=== PATIENT | female | born 1950 | race African-American/Black ===

== ENCOUNTER 2021-06-23 13:45 | Inpatient (IN) ==
[2021-07-19] MEDS ORDERED: Lactated Ringers 1000 ml BAG 1,000 ML IV SCH (06:00)
[2021-07-19] MEDS ORDERED: NS 0.45% 1000 ml BAG 1,000 ML IV SCH (06:00)
[2021-07-19] MEDS ORDERED: Buffered Lidocaine 1% SYRIN 1 ml INTRADERM ONE ×4 (06:00→11:36)
[2021-07-19] MEDS ORDERED: ceFAZolin 2 GM in NS PREMIX 2 GM/100 ML BAG IVPB ONE (10:14)
[2021-07-19] MEDS ORDERED: Bupivacaine 0.5% 50 ML MDV VIAL ONE (10:35)
[2021-07-19] MEDS ORDERED: hydrALAZINE 20 mg/ml 1 ML Vial IV IV SLOW PU ONE (11:44)
[2021-07-19] MEDS ORDERED: hydrALAZINE 20 mg/ml 1 ML Vial IV ONE (11:47)
[2021-07-19] MEDS ORDERED: Metoprolol Tartrate 5 mg VIAL 5 ml VIAL (1 mg/ml) ONE (12:09)
[2021-07-19] MEDS: Labetalol IV 5 MG/ML 20 ml VIAL IV PUSH ONE ×2 (12:12→15:50)
[2021-07-19 12:13] LABS: Glucose 379 mg/dL (70-100)
[2021-07-19] MEDS ORDERED: Lidocaine 2% PF 5 ML VIAL ONE (13:27)
[2021-07-19] MEDS ORDERED: Propofol 10 MG/ML 20 ML BTL ONE (13:27)
[2021-07-19] MEDS ORDERED: Midazolam 2 mg/2 ml VIAL 1 mg/ml 2 ml VIAL (2 mg) ONE (13:28)
[2021-07-19] MEDS ORDERED: Phenylephrine IV 10 MG/ML 1 ml VIAL ONE (14:01)
[2021-07-19] MEDS ORDERED: diPHENhydraMINE 25 mg TAB PO PRN (14:49)
[2021-07-19] MEDS ORDERED: Ondansetron 4 mg VIAL 2 MG/ML 2 ml VIAL IV PRN (14:49)
[2021-07-19] MEDS ORDERED: diPHENhydraMINE IV 50 MG/ML 1 ml VIAL (BENADRYL) IV PRN (14:49)
[2021-07-19] MEDS ORDERED: Lactulose 30 ml UDC PO PRN (14:49)
[2021-07-19] MEDS ORDERED: Ondansetron ODT 4 mg TAB 4 MG TAB PO PRN (14:49)
[2021-07-19] MEDS ORDERED: Morphine 2 MG/ML SYRINGE IV PRN (14:49)
[2021-07-19] MEDS ORDERED: Fluticasone NASAL SPRAY 50MCG 16 gm SPRAY BTL INTRANASAL PRN (15:00)
[2021-07-19] MEDS ORDERED: Labetalol IV 5 MG/ML 20 ml VIAL ONE (15:50)
[2021-07-19] MEDS ORDERED: Dextrose 50% Syringe 50 ml 25 GM/50 ML SYRINGE IV PUSH PRN (16:40)
[2021-07-19] MEDS: Insulin ISOPH/REG 70/30 SUBCUT SCH (18:26)
[2021-07-19] MEDS: Heparin 5000 UNITS/ML 1 mL VIAL SUBCUT SCH (20:31)
[2021-07-19] MEDS: Calcium (OSCAL) 500 mg TAB PO SCH (20:31)
[2021-07-19] MEDS: Morphine 2 MG/ML SYRINGE IV PRN ×2 (21:34→23:53)
[2021-07-20] MEDS ORDERED: Morphine 2 MG/ML SYRINGE IV ONE (01:13)
[2021-07-20] MEDS: Morphine 2 MG/ML SYRINGE IV PRN ×3 (02:22→10:37)
[2021-07-20] MEDS ORDERED: Vancomycin per Pharmacy 1 EA NOTE FOLLOW UP PRN (05:40)
[2021-07-20] MEDS: Vitamin THERAPEUTIC TAB PO SCH (07:55)
[2021-07-20] MEDS: Isosorbide Mononit ER 30mg TAB PO SCH (07:55)
[2021-07-20] MEDS: Calcium (OSCAL) 500 mg TAB PO SCH ×2 (07:56→21:27)
[2021-07-20] MEDS: Heparin 5000 UNITS/ML 1 mL VIAL SUBCUT SCH ×2 (07:57→21:21)
[2021-07-20 08:00] LABS: Hematocrit 29 % (35-47); Hemoglobin 9.7 g/dL (12.0-16.0); Mean Platelet Volume 8.5 fL (7.4-10.4); Platelet Count 308 10^3/uL (150-450)
[2021-07-20 08:56] LABS: Calcium 9.1 mg/dL (8.6-10.3); eGFR CKD-EPI 4.6 (>60)
[2021-07-20 09:05] LABS: Potassium 6.2 mmol/L (3.5-5.0)
[2021-07-20] MEDS ORDERED: HYDROmorphone 0.5 MG/0.5 ML SYRINGE IV SLOW PU ONE ×2 (09:29→10:18)
[2021-07-20] MEDS ORDERED: Cefepime 1 GM in Dextrose 1 GM/50 ML BAG IV ONE (12:00)
[2021-07-20] MEDS ORDERED: Vancomycin 1,500 MG in NS 0.9% 250 ml 250 ML IVPB SCH (12:00)
[2021-07-20 12:46] LABS: Hepatitis B Surface Antigen Nonreactive (Nonreactive)
[2021-07-20 12:51] LABS: Hepatitis B Core IgM Nonreactive (Nonreactive)
[2021-07-20 13:04] LABS: Hepatitis B Surface Ab Not Immune (Immune)
[2021-07-20] MEDS: Insulin ISOPH/REG 70/30 SUBCUT SCH (17:40)
[2021-07-21 05:47] LABS: Hematocrit 30 % (35-47); Hemoglobin 9.7 g/dL (12.0-16.0); Platelet Count 280 10^3/uL (150-450)
[2021-07-21] MEDS ORDERED: Vancomycin Random Level NOTE FOLLOW UP ONE (06:00)
[2021-07-21 06:10] LABS: Blood Urea Nitrogen 28 mg/dL (6-24); CO2 Carbon Dioxide 26 mmol/L (22-32); Calcium 9.6 mg/dL (8.6-10.3); Chloride 95 mmol/L (101-111); Glucose 85 mg/dL (70-100); Sodium 133 mmol/L (135-145)
[2021-07-21 06:25] LABS: Anion Gap 12 mmol/L (2-11); Potassium 5.4 mmol/L (3.5-5.0)
[2021-07-21 06:32] LABS: Vancomycin Random < 2.0 mcg/mL
[2021-07-21] MEDS: Calcium (OSCAL) 500 mg TAB PO SCH ×2 (08:52→22:56)
[2021-07-21] MEDS: Isosorbide Mononit ER 30mg TAB PO SCH (08:52)
[2021-07-21] MEDS: Vitamin THERAPEUTIC TAB PO SCH (08:52)
[2021-07-21] MEDS: Heparin 5000 UNITS/ML 1 mL VIAL SUBCUT SCH ×2 (08:54→21:38)
[2021-07-21] MEDS: Morphine 2 MG/ML SYRINGE IV PRN (10:20)
[2021-07-21] MEDS ORDERED: Vancomycin 500 MG in NS 0.9% 250 ML IVPB ONE (14:00)
[2021-07-21] MEDS ORDERED: Vancomycin 750 MG in NS 0.9% 250 ML IVPB ONE (14:00)
[2021-07-21] MEDS: Insulin ISOPH/REG 70/30 SUBCUT SCH (17:45)
[2021-07-22 05:34] LABS: Hematocrit 32 % (35-47); Hemoglobin 10.2 g/dL (12.0-16.0); Mean Platelet Volume 8.7 fL (7.4-10.4); Platelet Count 304 10^3/uL (150-450)
[2021-07-22] MEDS ORDERED: Vancomycin Random Level NOTE FOLLOW UP ONE (06:00)
[2021-07-22] MEDS: Calcium (OSCAL) 500 mg TAB PO SCH ×2 (08:29→23:39)
[2021-07-22] MEDS: Vitamin THERAPEUTIC TAB PO SCH (08:29)
[2021-07-22] MEDS: Isosorbide Mononit ER 30mg TAB PO SCH (08:30)
[2021-07-22] MEDS: Heparin 5000 UNITS/ML 1 mL VIAL SUBCUT SCH ×2 (08:36→23:38)
[2021-07-22] MEDS: Heparin 1,000 UNIT/ML 10 ml (10,000 UNITS) CATHLAB/DIALYSIS DIALYSIS ONE ×3 (10:56→12:40)
[2021-07-22] MEDS ORDERED: Morphine 2 MG/ML SYRINGE IV ONE (11:24)
[2021-07-22] MEDS ORDERED: Vancomycin 750 MG in NS 0.9% 250 ML IVPB ONE (14:00)
[2021-07-22] MEDS: Insulin ISOPH/REG 70/30 SUBCUT SCH (17:50)
[2021-07-23 03:07] LABS: ABS Basophils 0.1 10^3/ul (0-0.2); ABS Lymphocytes 1.3 10^3/ul (1.0-4.8); ABS Monocytes 1.7 10^3/ul (0-0.8); ABS Neutrophils 8.7 10^3/ul (1.5-7.7); Eosinophil % 0.3 %; Hematocrit 31 % (35-47); Hemoglobin 9.9 g/dL (12.0-16.0); Lymphocyte % 11.4 %; Mean Corpuscular HGB Conc 32 g/dL (31-36); Mean Corpuscular Hemoglobin 30 pg (27-31); Mean Corpuscular Volume 92 fL (80-97); Mean Platelet Volume 8.9 fL (7.4-10.4); Platelet Count 383 10^3/uL (150-450); Red Blood Count 3.34 10^6 /uL (3.70-4.87); Red Cell Distribution Width 17 % (10-15); White Blood Count 11.9 10^3/uL (3.5-10.8)
[2021-07-23 03:50] LABS: eGFR CKD-EPI 5.5 (>60)
[2021-07-23 03:56] LABS: Potassium 6.1 mmol/L (3.5-5.0)
[2021-07-23] MEDS ORDERED: SODIUM ZIRCONIUM CYCLOSILICATE 5 GM PACKET PO ONE ×2 (04:12→10:30)
[2021-07-23 05:45] LABS: Hematocrit 33 % (35-47); Hemoglobin 10.8 g/dL (12.0-16.0); Mean Platelet Volume 8.7 fL (7.4-10.4); Platelet Count 392 10^3/uL (150-450)
[2021-07-23] MEDS: Isosorbide Mononit ER 30mg TAB PO SCH (08:22)
[2021-07-23] MEDS: Heparin 5000 UNITS/ML 1 mL VIAL SUBCUT SCH ×2 (08:52→21:16)
[2021-07-23] MEDS: Vitamin THERAPEUTIC TAB PO SCH (08:53)
[2021-07-23] MEDS: Calcium (OSCAL) 500 mg TAB PO SCH ×3 (08:53→21:25)
[2021-07-23 15:01] LABS: Calcium 8.7 mg/dL (8.6-10.3); eGFR CKD-EPI 4.6 (>60)
[2021-07-23 15:03] LABS: Potassium 5.3 mmol/L (3.5-5.0)
[2021-07-23] MEDS: Insulin ISOPH/REG 70/30 SUBCUT SCH (17:34)
[2021-07-24 05:03] LABS: Hematocrit 31 % (35-47); Hemoglobin 10.2 g/dL (12.0-16.0); Mean Platelet Volume 8.8 fL (7.4-10.4); Platelet Count 395 10^3/uL (150-450)
[2021-07-24 05:16] LABS: Calcium 8.9 mg/dL (8.6-10.3); eGFR CKD-EPI 3.8 (>60)
[2021-07-24 05:35] LABS: Potassium 6.4 mmol/L (3.5-5.0)
[2021-07-24] MEDS: SODIUM ZIRCONIUM CYCLOSILICATE 5 GM PACKET PO SCH ×2 (06:03→06:33)
[2021-07-24] MEDS ORDERED: SODIUM ZIRCONIUM CYCLOSILICATE 10 GM PACKET PO ONE (08:08)
[2021-07-24] MEDS ORDERED: cloNIDine 0.3 MG PATCH 0.3 MG/24 HR 7 DAY PATCH TRANSDERM SCH (09:00)
[2021-07-24] MEDS: Isosorbide Mononit ER 30mg TAB PO SCH (09:00)
[2021-07-24] MEDS: Heparin 5000 UNITS/ML 1 mL VIAL SUBCUT SCH ×2 (09:01→21:43)
[2021-07-24] MEDS: Vitamin THERAPEUTIC TAB PO SCH (09:12)
[2021-07-24] MEDS: Calcium (OSCAL) 500 mg TAB PO SCH ×2 (09:12→21:54)
[2021-07-24] MEDS ORDERED: Heparin 1,000 UNIT/ML 10 ml (10,000 UNITS) CATHLAB/DIALYSIS DIALYSIS ONE (11:00)
[2021-07-24 12:21] LABS: Calcium 9.2 mg/dL (8.6-10.3); eGFR CKD-EPI 3.7 (>60)
[2021-07-24 12:36] LABS: Albumin 3.4 g/dL (3.2-5.2); Globulin 3.4 g/dL (2-4); Magnesium 2.2 mg/dL (1.9-2.7); Total Bilirubin 0.3 mg/dL (0.2-1.0); Total Protein 6.8 g/dL (6.4-8.9)
[2021-07-24 12:39] LABS: Potassium 6.6 mmol/L (3.5-5.0)
[2021-07-24] MEDS ORDERED: CALCIUM GLUCONATE 1GM/50ML NS 1 GM/50 ML BAG IV ONE (12:51)
[2021-07-24] MEDS ORDERED: Albuterol 2.5mg/3 ml (0.083%) NEB.SOLN INH ONE ×2 (12:51→13:10)
[2021-07-24] MEDS ORDERED: Sodium Polystyrene ORAL.SUSP 15 GM/60 ML BTL PO ONE (13:15)
[2021-07-24] MEDS ORDERED: Sodium Bicarbonate 8.4% SYR 50 ml SYRINGE IV ONE (13:19)
[2021-07-24] MEDS ORDERED: Sodium Bicarbonate 8.4% IV 100 MEQ in D5W 1000 ML BAG IV ONE (14:00)
[2021-07-24] MEDS ORDERED: SODIUM ZIRCONIUM CYCLOSILICATE 10 GM PACKET PO SCH (14:00)
[2021-07-24] MEDS: metroNIDAZOLE IV 500 MG/100ML 500 MG/100 ML BAG IVPB SCH (14:59)
[2021-07-24 16:26] LABS: Calcium 9.3 mg/dL (8.6-10.3); eGFR CKD-EPI 3.3 (>60)
[2021-07-24] MEDS ORDERED: Iodixanol (CONTRAST) 320 MG/ML 100 ML SDV IV ONE (16:27)
[2021-07-24 16:28] LABS: Potassium 5.5 mmol/L (3.5-5.0)
[2021-07-24 16:38] LABS: Myoglobin 1733.5 ng/mL (14.3-65.8)
[2021-07-24] MEDS: Insulin ISOPH/REG 70/30 SUBCUT SCH (19:23)
[2021-07-24 20:46] LABS: Glucose Confirmatory 408 mg/dL (70-100)
[2021-07-25] MEDS: metroNIDAZOLE IV 500 MG/100ML 500 MG/100 ML BAG IVPB SCH (01:43)
[2021-07-25] MEDS: Heparin 1,000 UNIT/ML 10 ml (10,000 UNITS) CATHLAB/DIALYSIS DIALYSIS ONE (07:17)
[2021-07-25] MEDS ORDERED: Albumin Human 25% 25 GM/100 ML IV ONE ×2 (08:00→11:00)
[2021-07-25] MEDS: Heparin 5000 UNITS/ML 1 mL VIAL SUBCUT SCH ×2 (10:07→21:07)
[2021-07-25] MEDS: Calcium (OSCAL) 500 mg TAB PO SCH ×2 (10:15→21:06)
[2021-07-25] MEDS: Isosorbide Mononit ER 30mg TAB PO SCH (10:16)
[2021-07-25] MEDS: Vitamin THERAPEUTIC TAB PO SCH (10:16)
[2021-07-25] MEDS ORDERED: Iodixanol (CONTRAST) 320 MG/ML 100 ML SDV IV ONE (10:19)
[2021-07-25 10:27] LABS: Hematocrit 30 % (35-47); Hemoglobin 9.4 g/dL (12.0-16.0); Mean Corpuscular HGB Conc 32 g/dL (31-36); Mean Corpuscular Hemoglobin 29 pg (27-31); Mean Corpuscular Volume 91 fL (80-97); Mean Platelet Volume 8.2 fL (7.4-10.4); Platelet Count 384 10^3/uL (150-450); Red Blood Count 3.26 10^6 /uL (3.70-4.87); Red Cell Distribution Width 16 % (10-15); White Blood Count 15.6 10^3/uL (3.5-10.8)
[2021-07-25 10:34] LABS: ABS Basophils 0.1 10^3/ul (0-0.2); ABS Monocytes 1.8 10^3/ul (0-0.8); ABS Neutrophils 12.7 10^3/ul (1.5-7.7); Eosinophil % 0.1 %; Lymphocyte % 6.2 %
[2021-07-25 11:51] LABS: Albumin 3.8 g/dL (3.2-5.2); Calcium 8.4 mg/dL (8.6-10.3); Potassium 5.2 mmol/L (3.5-5.0); Total Bilirubin 0.4 mg/dL (0.2-1.0)
[2021-07-25 11:56] LABS: Albumin/Globulin Ratio 1.2 (1-3); Globulin 3.1 g/dL (2-4); Total Protein 6.9 g/dL (6.4-8.9); Vancomycin Random 15.6 mcg/mL; eGFR CKD-EPI 3.4 (>60)
[2021-07-25] MEDS ORDERED: Heparin 1,000 UNIT/ML 10 ml (10,000 UNITS) CATHLAB/DIALYSIS DIALYSIS ONE (12:00)
[2021-07-25] MEDS ORDERED: Vancomycin 750 MG in NS 0.9% 250 ML IVPB ONE (16:00)
[2021-07-25] MEDS ORDERED: Piperacillin/Tazobac ADVAN 3.375 GM in NS 0.9% 100 ml BAG 100 ML IV ONE (16:00)
[2021-07-25] MEDS ORDERED: Zosyn per Pharmacy NOTE FOLLOW UP SCH (16:00)
[2021-07-25] MEDS: Insulin ISOPH/REG 70/30 SUBCUT SCH (17:48)
[2021-07-25] MEDS ORDERED: Acetaminophen IV 1 GM/100ML 100 ML IV PRN (18:37)
[2021-07-25] MEDS: ZOSYN 3.375 GM Q12H per EXTENDED INFUSION IV SCH (20:48)
[2021-07-26] MEDS: Heparin 1,000 UNIT/ML 10 ml (10,000 UNITS) CATHLAB/DIALYSIS DIALYSIS ONE ×4 (06:24→10:02)
[2021-07-26] MEDS: ZOSYN 3.375 GM Q12H per EXTENDED INFUSION IV SCH ×2 (09:04→21:35)
[2021-07-26] MEDS: Calcium (OSCAL) 500 mg TAB PO SCH ×2 (09:05→21:39)
[2021-07-26] MEDS: Heparin 5000 UNITS/ML 1 mL VIAL SUBCUT SCH ×2 (09:05→21:46)
[2021-07-26] MEDS: Isosorbide Mononit ER 30mg TAB PO SCH (09:06)
[2021-07-26] MEDS: Vitamin THERAPEUTIC TAB PO SCH (09:06)
[2021-07-26] MEDS ORDERED: Vancomycin Random Level NOTE FOLLOW UP ONE (13:30)
[2021-07-26 14:18] LABS: Hematocrit 33 % (35-47); Hemoglobin 10.5 g/dL (12.0-16.0); Mean Corpuscular HGB Conc 32 g/dL (31-36); Mean Corpuscular Hemoglobin 30 pg (27-31); Mean Corpuscular Volume 95 fL (80-97); Mean Platelet Volume 8.3 fL (7.4-10.4); Platelet Count 423 10^3/uL (150-450); Red Cell Distribution Width 16 % (10-15); White Blood Count 15.8 10^3/uL (3.5-10.8)
[2021-07-26 14:19] LABS: ABS Basophils 0.1 10^3/ul (0-0.2); ABS Lymphocytes 0.5 10^3/ul (1.0-4.8); ABS Monocytes 1.8 10^3/ul (0-0.8); ABS Neutrophils 13.5 10^3/ul (1.5-7.7); Eosinophil % 0.1 %; Lymphocyte % 3.1 %
[2021-07-26] MEDS ORDERED: cloNIDine 0.3 MG PATCH 0.3 MG/24 HR 7 DAY PATCH TRANSDERM SCH (15:00)
[2021-07-26] MEDS ORDERED: Vancomycin 500 MG in NS 0.9% 250 ML IVPB ONE (16:00)
[2021-07-26] MEDS: Insulin ISOPH/REG 70/30 SUBCUT SCH (18:28)
[2021-07-27 07:04] LABS: Hematocrit 29 % (35-47); Hemoglobin 9.5 g/dL (12.0-16.0); Mean Corpuscular HGB Conc 33 g/dL (31-36); Mean Corpuscular Hemoglobin 30 pg (27-31); Mean Corpuscular Volume 92 fL (80-97); Mean Platelet Volume 8.5 fL (7.4-10.4); Platelet Count 411 10^3/uL (150-450); Red Blood Count 3.16 10^6 /uL (3.70-4.87); Red Cell Distribution Width 17 % (10-15); White Blood Count 12.9 10^3/uL (3.5-10.8)
[2021-07-27 07:09] LABS: ABS Basophils 0.1 10^3/ul (0-0.2); ABS Lymphocytes 0.8 10^3/ul (1.0-4.8); ABS Monocytes 1.7 10^3/ul (0-0.8); ABS Neutrophils 10.3 10^3/ul (1.5-7.7); Eosinophil % 0.1 %; Lymphocyte % 6.1 %
[2021-07-27 07:39] LABS: Calcium 9.2 mg/dL (8.6-10.3); Vancomycin Random 25.5 mcg/mL; eGFR CKD-EPI 3.5 (>60)
[2021-07-27] MEDS: ZOSYN 3.375 GM Q12H per EXTENDED INFUSION IV SCH ×2 (08:55→21:10)
[2021-07-27] MEDS: Heparin 1,000 UNIT/ML 10 ml (10,000 UNITS) CATHLAB/DIALYSIS DIALYSIS ONE (09:15)
[2021-07-27] MEDS: Heparin 5000 UNITS/ML 1 mL VIAL SUBCUT SCH ×2 (09:15→21:07)
[2021-07-27] MEDS: Calcium (OSCAL) 500 mg TAB PO SCH ×2 (09:15→21:06)
[2021-07-27] MEDS: Vitamin THERAPEUTIC TAB PO SCH (09:15)
[2021-07-27] MEDS: Isosorbide Mononit ER 30mg TAB PO SCH (09:16)
[2021-07-27] MEDS ORDERED: Heparin 1,000 UNIT/ML 10 ml (10,000 UNITS) CATHLAB/DIALYSIS DIALYSIS ONE (12:00)
[2021-07-27] MEDS: Heparin 1,000 UNIT/ML 10 ml (10,000 UNITS) CATHLAB/DIALYSIS DIALYSIS SCH ×8 (13:10→22:45)
[2021-07-27] MEDS ORDERED: Vancomycin Random Level NOTE FOLLOW UP ONE (16:32)
[2021-07-27] MEDS ORDERED: Vancomycin - DIALYSIS DOSING 1 EA NOTE FOLLOW UP SCH (17:00)
[2021-07-27] MEDS: Insulin ISOPH/REG 70/30 SUBCUT SCH (18:26)
[2021-07-28] MEDS: Heparin 1,000 UNIT/ML 10 ml (10,000 UNITS) CATHLAB/DIALYSIS DIALYSIS SCH (01:03)
[2021-07-28] MEDS ORDERED: Heparin 1,000 UNIT/ML 10 ml (10,000 UNITS) CATHLAB/DIALYSIS DIALYSIS PRN (02:00)
[2021-07-28] MEDS ORDERED: Vancomycin Random Level NOTE FOLLOW UP ONE (06:00)
[2021-07-28] MEDS: ZOSYN 3.375 GM Q12H per EXTENDED INFUSION IV SCH ×2 (08:13→20:49)
[2021-07-28 08:18] LABS: Calcium 8.6 mg/dL (8.6-10.3); Potassium 4.6 mmol/L (3.5-5.0)
[2021-07-28 08:22] LABS: ABS Basophils 0.1 10^3/ul (0-0.2); ABS Lymphocytes 1.6 10^3/ul (1.0-4.8); ABS Monocytes 1.1 10^3/ul (0-0.8); ABS Neutrophils 6.6 10^3/ul (1.5-7.7); Eosinophil % 0.5 %; Hematocrit 30 % (35-47); Hemoglobin 9.5 g/dL (12.0-16.0); Lymphocyte % 16.7 %; Mean Corpuscular HGB Conc 31 g/dL (31-36); Mean Corpuscular Hemoglobin 30 pg (27-31); Mean Corpuscular Volume 94 fL (80-97); Mean Platelet Volume 8.7 fL (7.4-10.4); Nucleated Red Blood Cells % 0.2; Platelet Count 358 10^3/uL (150-450); Red Blood Count 3.22 10^6 /uL (3.70-4.87); Red Cell Distribution Width 16 % (10-15); White Blood Count 9.4 10^3/uL (3.5-10.8)
[2021-07-28 08:24] LABS: eGFR CKD-EPI 3.8 (>60)
[2021-07-28] MEDS: Heparin 5000 UNITS/ML 1 mL VIAL SUBCUT SCH ×2 (09:01→20:49)
[2021-07-28] MEDS: Vitamin THERAPEUTIC TAB PO SCH (09:03)
[2021-07-28] MEDS: Calcium (OSCAL) 500 mg TAB PO SCH ×2 (09:03→20:48)
[2021-07-28] MEDS: Isosorbide Mononit ER 30mg TAB PO SCH (09:03)
[2021-07-28] MEDS: Insulin ISOPH/REG 70/30 SUBCUT SCH (18:00)
[2021-07-29] MEDS ORDERED: Vancomycin Random Level NOTE FOLLOW UP ONE (06:00)
[2021-07-29 06:07] LABS: Hematocrit 27 % (35-47); Hemoglobin 8.9 g/dL (12.0-16.0); Mean Corpuscular HGB Conc 33 g/dL (31-36); Mean Corpuscular Hemoglobin 29 pg (27-31); Mean Corpuscular Volume 90 fL (80-97); Mean Platelet Volume 8.3 fL (7.4-10.4); Platelet Count 429 10^3/uL (150-450); Red Blood Count 3.04 10^6 /uL (3.70-4.87); Red Cell Distribution Width 16 % (10-15)
[2021-07-29 06:44] LABS: Calcium 8.1 mg/dL (8.6-10.3); Potassium 4.2 mmol/L (3.5-5.0); Vancomycin Random 20.4 mcg/mL; eGFR CKD-EPI 3.3 (>60)
[2021-07-29 08:23] LABS: ABS Basophils 0.1 10^3/ul (0-0.2); ABS Eosinophils 0.1 10^3/ul (0-0.6); ABS Lymphocytes 1.8 10^3/ul (1.0-4.8); ABS Monocytes 1.3 10^3/ul (0-0.8); ABS Neutrophils 7.7 10^3/ul (1.5-7.7); Eosinophil % 0.8 %; Lymphocyte % 16.7 %; Nucleated Red Blood Cells % 0.1
[2021-07-29] MEDS ORDERED: Heparin 1,000 UNIT/ML 10 ml (10,000 UNITS) CATHLAB/DIALYSIS DIALYSIS ONE (09:00)
[2021-07-29 09:50] LABS: Rapid COVID-19 Molecular Undetected (Undetected)
[2021-07-29] MEDS: Calcium (OSCAL) 500 mg TAB PO SCH (10:38)
[2021-07-29] MEDS: Isosorbide Mononit ER 30mg TAB PO SCH (10:38)
[2021-07-29] MEDS: Vitamin THERAPEUTIC TAB PO SCH (10:39)
[2021-07-29] MEDS: ZOSYN 3.375 GM Q12H per EXTENDED INFUSION IV SCH (10:42)
[2021-07-29] MEDS: Heparin 5000 UNITS/ML 1 mL VIAL SUBCUT SCH (12:13)
[2021-07-29 12:23] VITALS: BP 115/47
[2021-07-29] MEDS ORDERED: Vancomycin 500 MG in NS 0.9% 250 ML IVPB ONE (16:00)
[2021-08-01] MEDS ORDERED: Vancomycin Random Level NOTE FOLLOW UP ONE (06:00)
== END 2021-07-29 15:35 | DRG 255 ==
LOC: AA 07-19 10:20 → SSU 07-19 17:41
PROVIDERS: ADMIT Orthopaedic Surgery; ATTEND Orthopaedic Surgery

== ENCOUNTER 2021-12-05 20:37 | Observation (INO) ==
[2021-12-05 21:35] LABS: ABS Lymphocytes 0.5 10^3/ul (1.0-4.8); ABS Monocytes 0.7 10^3/ul (0-0.8); ABS Neutrophils 6.8 10^3/ul (1.5-7.7); Eosinophil % 0.2 %; Hematocrit 27 % (35-47); Hemoglobin 8.4 g/dL (12.0-16.0); Lymphocyte % 5.9 %; Mean Corpuscular HGB Conc 31 g/dL (31-36); Mean Corpuscular Hemoglobin 26 pg (27-31); Mean Corpuscular Volume 82 fL (80-97); Mean Platelet Volume 8.5 fL (7.4-10.4); Platelet Count 336 10^3/uL (150-450); Red Blood Count 3.27 10^6 /uL (3.70-4.87); Red Cell Distribution Width 17 % (10-15)
[2021-12-05] MEDS ORDERED: Morphine 4 MG/ML VIAL (1 ml) IV ONE (21:42)
[2021-12-05 21:46] LABS: INR 1.48 (0.89-1.11)
[2021-12-05 22:00] LABS: Albumin 3.3 g/dL (3.2-5.2); Calcium 8.6 mg/dL (8.6-10.3); Globulin 3.2 g/dL (2-4); Magnesium 1.8 mg/dL (1.9-2.7); Potassium 3.3 mmol/L (3.5-5.0); Total Bilirubin 0.4 mg/dL (0.2-1.0); Total Protein 6.5 g/dL (6.4-8.9); eGFR CKD-EPI 12.8 (>60)
[2021-12-05 23:28] LABS: High Sensitivity Troponin 1 Hr 11 pg/mL (<15)
[2021-12-06] MEDS ORDERED: Potassium Chlor 20 meq TAB.ER PO ONE (02:40)
[2021-12-06] MEDS ORDERED: Magnesium Sulfate 2 gm BAG 2 GM/50 ML BAG IVPB ONE (02:40)
[2021-12-06] MEDS ORDERED: Fluticasone NASAL SPRAY 50MCG 16 gm SPRAY BTL INTRANASAL PRN (04:15)
[2021-12-06] MEDS ORDERED: oxyCODONE/Acetamin 10/325(NF) TAB PO PRN (04:15)
[2021-12-06] MEDS: oxyCODONE/Acetamin 5/325 mg TAB PO PRN ×3 (06:00→23:05)
[2021-12-06 06:05] LABS: Hematocrit 24 % (35-47); Hemoglobin 7.6 g/dL (12.0-16.0); Mean Corpuscular HGB Conc 31 g/dL (31-36); Mean Corpuscular Hemoglobin 26 pg (27-31); Mean Corpuscular Volume 82 fL (80-97); Mean Platelet Volume 9.2 fL (7.4-10.4); Platelet Count 307 10^3/uL (150-450); Red Blood Count 2.98 10^6 /uL (3.70-4.87); Red Cell Distribution Width 18 % (10-15); White Blood Count 6.7 10^3/uL (3.5-10.8)
[2021-12-06 06:12] LABS: ABS Lymphocytes 0.6 10^3/ul (1.0-4.8); ABS Monocytes 0.8 10^3/ul (0-0.8); ABS Neutrophils 5.2 10^3/ul (1.5-7.7); Eosinophil % 0.2 %; Lymphocyte % 9.1 %
[2021-12-06] MEDS ORDERED: Dextrose 50% Syringe 50 ml 25 GM/50 ML SYRINGE IV PUSH PRN (06:24)
[2021-12-06 07:05] LABS: Blood Urea Nitrogen 16 mg/dL (6-24); CO2 Carbon Dioxide 33 mmol/L (22-32); Calcium 8.1 mg/dL (8.6-10.3); Chloride 92 mmol/L (101-111); Glucose 326 mg/dL (70-100); Magnesium 1.8 mg/dL (1.9-2.7); Sodium 137 mmol/L (135-145); eGFR CKD-EPI 9.2 (>60)
[2021-12-06 07:48] LABS: Anion Gap 12 mmol/L (2-11)
[2021-12-06] MEDS ORDERED: Regadenoson 0.4 MG/5 ML SYRINGE ONE (08:01)
[2021-12-06] MEDS ORDERED: Aminophylline 25 MG/ML VIAL ONE (08:01)
[2021-12-06] MEDS ORDERED: cloNIDine 0.3 MG PATCH 0.3 MG/24 HR 7 DAY PATCH TRANSDERM SCH (09:00)
[2021-12-06] MEDS: Heparin 5000 UNITS/ML 1 mL VIAL SUBCUT SCH ×2 (10:03→21:32)
[2021-12-06] MEDS: Isosorbide Mononit ER 30mg TAB PO SCH (10:05)
[2021-12-06 10:35] LABS: Hepatitis B Surface Antigen Nonreactive (Nonreactive)
[2021-12-06 10:53] LABS: Hepatitis B Surface Ab Not Immune (Immune)
[2021-12-06] MEDS: Heparin 1,000 UNIT/ML 10 ml (10,000 UNITS) CATHLAB/DIALYSIS DIALYSIS ONE ×4 (14:16→17:07)
[2021-12-06] MEDS: Calcium Carb (TUMS) 500 mg CHEW TAB PO SCH ×2 (21:29→21:38)
[2021-12-07] MEDS: oxyCODONE/Acetamin 5/325 mg TAB PO PRN (07:31)
[2021-12-07] MEDS: Isosorbide Mononit ER 30mg TAB PO SCH (14:17)
[2021-12-07] MEDS: Calcium Carb (TUMS) 500 mg CHEW TAB PO SCH (14:25)
[2021-12-07] MEDS: Heparin 5000 UNITS/ML 1 mL VIAL SUBCUT SCH (14:33)
[2021-12-07 17:36] VITALS: BP 118/41
== END 2021-12-07 17:42 | disposition home or self-care (01) ==
LOC: ED 20:37 → INTOOBSV 12-06 02:34 → EDHOLD 12-06 02:34 → SUATTDRO 12-06 02:34 → MEDTELE 12-06 12:10
PROVIDERS: ADMIT Internal Medicine; ATTEND Internal Medicine